=== PATIENT | male | born 1965 | race African-American/Black ===

== ENCOUNTER 2024-03-21 05:25 | Emergency (ER) | payer OTHER ==
[2024-03-21 06:07] LABS: INR-International Normal Ratio 1.1; Prothrombin Time 11.4 sec (9.5-12.1)
[2024-03-21 06:09] LABS: Critical Call Chem-Lactate ERS.LH1 @0608
[2024-03-21 06:13] LABS: ALT (SGPT) 11 U/L (8-55); AST (SGOT) 21 U/L (5-34); Alkaline Phosphatase 105 U/L (40-110); Anion Gap 32 mmol/L (10-20); BUN (Urea Nitrogen) 56 mg/dL (8.4-25.7); Bilirubin, Total 0.8 mg/dL (0.2-1.2); Calc. Creatinine Clearance 0 mL/min (70-130); Calcium 9.8 mg/dL (7.8-10.44); Carbon Dioxide 20 mmol/L (22-29); Chloride 87 mmol/L (98-107); Estimated GFR 16; Globulin 4.5 g/dL (2.4-3.5); Glucose 120 mg/dL (70-105); Lipase 9 U/L (8-78); Potassium 5.2 mmol/L (3.5-5.1); Protein, Total 7.5 g/dL (6.0-8.3); Sodium 134 mmol/L (136-145)
[2024-03-21 06:19] LABS: Troponin I Less than 0.010 ng/mL (< 0.028)
[2024-03-21] MEDS ORDERED: Piperacillin/Tazobactam 4.5 GM VIAL ONE (06:38)
[2024-03-21 06:46] LABS: Hematocrit 41.8 % (38.8-50.0); Hemoglobin 14.5 g/dL (13.5-17.5); Mean Corpuscular HGB CONC 34.7 g/dL (32.0-36.0); Mean Corpuscular Hemoglobin 28.5 pg (27.0-33.0); Mean Corpuscular Volume 82.3 fL (81.2-95.1); Platelet Count 450 10x3/uL (150-450); RBC Distribution Width 13.7 % (11.5-14.5); Red Blood Cell (RBC) Count 5.08 10x6/uL (4.32-5.72); White Blood Cell (WBC) Count 6.3 10x3/uL (3.5-10.5)
[2024-03-21 06:57] LABS: MDiff Complete? YES
[2024-03-21 07:13] LABS: Lymphocytes 9 % (21-51); Monocytes 8 % (0-10); Neutrophil 58 % (42-75)
[2024-03-21 07:16] LABS: Band 19 % (5-11)
[2024-03-21 07:17] LABS: Eosinophils 6 % (0-10)
[2024-03-21 07:19] LABS: Target Cells SLIGHT = 2-5 cells (100X) (0-1/hpf)
[2024-03-21 07:20] LABS: Microcytosis SLIGHT = 6-15 cells (100X) (0-5/hpf); Ovalocytes SLIGHT = 2-5 cells (100X) (0-1/hpf)
[2024-03-21 07:21] LABS: Large Platelets SLIGHT (None Seen); Platelet Adequacy Comment Appears Adequate
[2024-03-21 07:34] LABS: Bilirubin Neg (Negative); Blood, Urine 50 (Negative); Clarity Cloudy (Clear); Glucose, Urine (Dipstick) 50 mg/dL (Negative); Ketone, Urine Negative (Negative); Leukocyte 25 (Negative); Nitrite Negative (Negative); Protein, Urine (Dipstick) 100 mg/dl (Neg-Trace); Specific Gravity, Urine 1.025 (1.005-1.030); Urobilinogen Normal mg/dL (Less than 2)
[2024-03-21] MEDS ORDERED: Albumin 25% 25 GM (100 mL) BOT IVPB SCH (08:00)
[2024-03-21 08:01] LABS: Bacteria/HPF 1+ HPF (None Seen); CAUTI Indications for Culture Alt mental st,lethar; Renal Epithelial 0-3 HPF (None Seen); Squamous Epithelial 0-3 HPF (0-3)
[2024-03-21 08:04] LABS: Urine Culture Reflex Yes Yes
[2024-03-21] MEDS ORDERED: Octreotide Acetate 1,250 MCG in Sodium Chloride 0.9% 250 ML 250 ML IVPB SCH (09:00)
[2024-03-21] MEDS ORDERED: Midodrine HCl 5 MG TAB PO SCH (09:15)
[2024-03-21 09:44] LABS: Critical Call Chem-Lactate NUR.VM6.@0935; Lactic Acid 8.1 mmol/L (0.5-2.2)
[2024-03-21] MEDS ORDERED: NOREPINEPHRINE 8 MG/250 ML-D5W 250 ML ONE (10:03)
== END 2024-03-21 10:34 | disposition short-term general hospital (02) ==
LOC: CSHERS 05:25
DX: K65.9 Peritonitis, unspecified (principal); N17.9 Acute kidney failure, unspecified; R65.21 Severe sepsis with septic shock; R18.8 Other ascites; F17.210 Nicotine dependence, cigarettes, uncomplicated
CPT/HCPCS: 36415; 51702; 71045; 74176; 80053; 81001; 83605; 83690; 83880; 84484; 85025; 85610; 87040; 87086; 93005; 96361; 96365; 96367; 96368; J2354; J2543; J7050; P9047